=== PATIENT | male | born 1990 | race Hispanic/Latino ===

== ENCOUNTER 2023-09-03 15:14 | Emergency (ER) | payer OTHER, SELFPAY ==
[~2023-09-03] VITALS: Ht 180.3 cm; Wt 91.6 kg
[2023-09-03 15:16] VITALS: BP 138/98; TEMP 98; O2SAT 99
[2023-09-03] MEDS ORDERED: ACET1TAB55 PO (15:23)
== END 2023-09-03 18:40 | disposition home or self-care (01) ==
LOC: M ED 15:14
DX: K11.6 Mucocele of salivary gland (principal); Z88.2 Allergy status to sulfonamides; Z79.1 Long term (current) use of non-steroidal anti-inflammatories (NSAID)